=== PATIENT | male | born 1960 | race African-American/Black ===

== ENCOUNTER 2017-11-19 12:53 | Emergency (ER) | payer BC ==
[2017-11-19] MEDS ORDERED: KETOROLAC TROMETHAMINE INJ/PF 30 MG/1 ML SDV IM ONE (14:20)
[2017-11-19] MEDS ORDERED: DEXAMETHASONE SOD PHOS INJ 10 MG/1 ML VIAL IM ONE (14:20)
--- NOTE | 2017-11-19 14:27 | ER Document Report ---
HPI - HPI Pain Level: 5 Notes: Patient is a 57-year-old male who presents to the ED with acute on chronic low back pain. Patient states that his symptoms began when he was at work this morning. Patient states that he was picking up yard waste when he felt pain in his back. Patient states that he has had pain in this area before and is scheduled for surgery in about 2 weeks. Patient states that he did have a previous surgery to that area in his back as well in the past. Patient states that the pain is primarily there with movement and not by the touch. He still eating and drinking without any difficulties. He is urinating normally and having normal bowel movements. Patient states that he is still ambulatory. He denies any diabetes history, IV drug use, h/o AAA, injections or procedures to his lower back recently, previous spinal abscess, or recent illness. He denies any drug allergies. Patient does admit to smoking. Denies any headache, fever , neck pain, URI, sore throat, chest pain, palpitations, syncope, cough, shortness of breath, wheeze, dyspnea, abdominal pain, nausea/vomiting/diarrhea, urinary retention, dysuria, hematuria, loss of control of bowel or bladder, numbness/tingling, saddle anesthesia, muscle paralysis/weakness, or rash. Patient is under the care of pain management and takes Lyrica as well as oxycodone for his chronic pain. - ROS Systems Reviewed and Negative: Yes All other systems reviewed and negative - CONSTITUTIONAL Constitutional: DENIES: Fever, Chills - MUSCULOSKELETAL Musculoskeletal: REPORTS: Extremity pain - right leg Past Medical History - Social History Smoking Status: Current Every Day Smoker Chew tobacco use (# tins/day): No Frequency of alcohol use: Rare Drug Abuse: None Family History: Reviewed & Not Pertinent Patient has suicidal ideation: No Patient has homicidal ideation: No - Past Medical History Cardiac Medical History: Reports: Hx Coronary Artery Disease, Hx Hypertension Pulmonary Medical History: Renal/ Medical History: Denies: Hx Peritoneal Dialysis Musculoskeltal Medical History: Reports Hx Arthritis - bilateral knees and back Past Surgical History: Reports: Hx Cardiac Surgery - stents, Hx Orthopedic Surgery - s/p L KNEE SURGERY 1 MO AGO. Denies: Hx Open Heart Surgery - Immunizations Immunizations up to date: Yes Hx Diphtheria, Pertussis, Tetanus Vaccination: No - unk Vertical Provider Document - CONSTITUTIONAL Agree With Documented VS: Yes Notes: PHYSICAL EXAMINATION: GENERAL: Well-appearing, well-nourished and in no acute distress. LUNGS: Breath sounds clear to auscultation bilaterally and equal. No wheezes rales or rhonchi. HEART: Regular rate and rhythm without murmurs, rubs, gallops. ABDOMEN: Soft, nontender, nondistended abdomen. No guarding, no rebound. No masses appreciated. Normal bowel sounds present. No CVA tenderness bilaterally. No obvious pulsatile mass Musculoskeletal: LE's b/l: FROM to passive/active. Strength 5+/5. No deficits noted. No bony tenderness of extremities. Back: FROM to passive/active. Strength 5+/5. No vertebral point tenderness, stepoffs, or deformities. No other bony tenderness, erythema, swelling, or ecchymosis. SLR negative b/l. + mild tenderness to the L-paraspinal mm b/l. Mild spasming. No SI jt tenderness. No foot drop Extremities: No cyanosis, clubbing, or edema b/l. Peripheral pulses 2+. Capillary refill less than 2 seconds. NEUROLOGICAL: Normal speech, ataxic gait. Normal sensory, motor exams. Reflexes 2+ b/l. PSYCH: Normal mood, normal affect. SKIN: Warm, Dry, normal turgor, no rashes or lesions noted. - INFECTION CONTROL TRAVEL OUTSIDE OF THE [place] IN LAST 30 DAYS: No - RESPIRATORY O2 Sat by Pulse Oximetry: 99 Course - Re-evaluation Re-evalutation: 11/19/17 14:33 Patient is an afebrile, well-hydrated, 57-year-old male who presents to the ED with acute on chronic low back pain, suspect low back strain. Vitals are stable. PE is otherwise unremarkable for any focal neurological deficits. Toradol and Decadron given IM today. Low suspicion for any meningitis, fracture , expanding/ruptured AAA, cauda equina syndrome, epidural mass lesion/abscess, herniated disc causing severe spinal stenosis, or other systemic infection at this time. Patient is aware that his condition can change from initial presentation and that he needs monitor symptoms closely for any acute changes. Recommend conservative measures for symptoms. I will send him home with a prescription for baclofen that he may use as directed and not while working or operating heavy machinery. Recheck with your PCM in 3-5 days. Keep consult with the surgeon in 2 weeks. Return to the ED with any worsening/concerning symptoms otherwise as reviewed discharge. Patient is in agreement. - Vital Signs Vital signs: Temp Pulse Resp BP Pulse Ox 98.0 F 75 16 152/84 H 99 11/19/17 12:58 11/19/17 12:58 11/19/17 12:58 11/19/17 12:58 11/19/17 12:58 Discharge - Discharge Clinical Impression: Low back pain Qualifiers: Chronicity: acute Back pain laterality: bilateral Sciatica presence: unspecified whether sciatica present Qualified Code(s): M54.5 - Low back pain Condition: Stable Disposition: HOME, SELF-CARE Instructions: Low Back Pain ([facility]), Warm Packs ([facility]), Ice Packs ([facility]) Additional Instructions: Rest, Ice Take medications as directed/needed Tylenol/ibuprofen as needed Light stretches daily Strength exercises as able Moist heat and massage may help F/u with your PCP in 3-5 days for a recheck Keep consult with your back surgeon and pain management Return to the ED with any worsening symptoms and/or development of fever, headache, chest pain, palpitations, syncope, shortness of breath, trouble breathing, abdominal pain, n/v/d, blood in stool/urine, loss of control of bowel /bladder, urinary retention, muscle weakness/paralysis, saddle anesthesia, numbness/tingling, or other worsening symptoms that are concerning to you. Prescriptions: Baclofen [Baclofen 10 mg Tablet] 5 - 10 mg PO BID PRN #10 tablet PRN Reason: Forms: Elevated Blood Pressure, Smoking Cessation Education, Return to Work Referrals: [facility] [Provider Group] - Follow up as needed
[2017-11-19 14:49] VITALS: BP 159/92
== END 2017-11-19 14:49 | disposition home or self-care (01) ==
LOC: ER 12:53
DX: M54.5 Low back pain (principal); G89.29 Other chronic pain; F17.200 Nicotine dependence, unspecified, uncomplicated
CPT/HCPCS: 99283; 96372; J1885; J1100

== ENCOUNTER 2017-11-23 13:00 | Emergency (ER) | payer BC ==
--- NOTE | 2017-11-23 13:18 | ER Document Report ---
ED Medical Screen (RME) - General Chief Complaint: Abdominal Pain Stated Complaint: STOMACH PAIN Time Seen by Provider: 11/23/17 13:13 Notes: Patient is here due to low blood pressure. He was seen here on with stomach pain and nausea and vomiting, but not diarrhea. He was given IV fluids and lab tests, including a CT scan without significant findings. He was discharged home with medications. He has had continued pain, although it has improved and also continuing nausea and has not been able to eat or drink very much. He went to a local urgent care today and his blood pressure was very low and they referred him here for further care. Patient is unaware of any fever. No chest pains. Has had this several times in the past without a good explanation. TRAVEL OUTSIDE OF THE [place] IN LAST 30 DAYS: No - Related Data Allergies/Adverse Reactions: No Known Allergies Allergy (Verified 11/23/17 13:00) Past Medical History - Past Medical History Cardiac Medical History: Reports: Hx Coronary Artery Disease, Hx Hypertension Pulmonary Medical History: Renal/ Medical History: Denies: Hx Peritoneal Dialysis Musculoskeltal Medical History: Reports Hx Arthritis - bilateral knees and back Past Surgical History: Reports: Hx Cardiac Surgery - stents, Hx Orthopedic Surgery - s/p L KNEE SURGERY 1 MO AGO. Denies: Hx Open Heart Surgery - Immunizations Immunizations up to date: Yes Hx Diphtheria, Pertussis, Tetanus Vaccination: No - unk Physical Exam - Vital signs Vitals: Pulse Resp BP Pulse Ox 78 17 79/53 L 95 11/23/17 13:04 11/23/17 13:04 11/23/17 13:04 11/23/17 13:04 Course - Vital Signs Vital signs: Temp Pulse Resp BP Pulse Ox 78 17 79/53 L 95 11/23/17 13:04 11/23/17 13:04 11/23/17 13:04 11/23/17 13:04
[2017-11-23] MEDS: NORMAL SALINE 1000 ML 1,000 ML IV PRN ×2 (13:41→15:07)
[2017-11-23 13:57] LABS: ABSOLUTE BASOPHILS # (AUTO) 0.1 10^3/uL (0.0-0.2); ABSOLUTE LYMPHOCYTES (AUTO) 3.5 10^3/uL (0.5-4.7); ABSOLUTE MONOCYTES (AUTO) 0.7 10^3/uL (0.1-1.4); ABSOLUTE NEUT (AUTO) 3.6 10^3/uL (1.7-8.2); BASOPHILS % (AUTO) 0.8 % (0-2); EOSINOPHILS % (AUTO) 0.5 % (0-6); HEMOGLOBIN 15.4 g/dL (13.5-17.0); LYMPHOCYTES % (AUTO) 43.7 % (13-45); MEAN CORPUSCULAR HEMOGLOBIN 29.2 pg (27.0-33.4); MEAN CORPUSCULAR HGB CONC 33.5 g/dL (32.0-36.0); MEAN CORPUSCULAR VOLUME 87 fl (80-97); MONOCYTES % (AUTO) 9.2 % (3-13); PLATELET COUNT 326 10^3/uL (150-450); RED BLOOD COUNT 5.29 10^6/uL (4.35-5.55); RED CELL DISTRIBUTION WIDTH 15.5 % (11.5-14.0); SEGMENTED NEUTROPHILS % (AUTO) 45.8 % (42-78); TOTAL CELLS COUNTED % (AUTO) 100 %
--- NOTE | 2017-11-23 14:12 | ER Document Report ---
ED GI/ - General Chief Complaint: Abdominal Pain Stated Complaint: STOMACH PAIN Time Seen by Provider: 11/23/17 13:13 Information source: Patient Notes: 57-year-old male with past medical history of high blood pressure with 2 cardiac stents who presents today with some return of abdominal pain. Patient was seen here on 4 days ago on November 20 secondary to some right midabdominal pain. Laboratory work showed an elevated white count of [address] scan of the abdomen and pelvis. Patient had vomiting at that time. Patient states he has had some intermittent nausea without vomiting. He has had no diarrhea. He denies any fevers. Patient states he started again to have pain but now lower to the right lower quadrant. He denies any upper abdominal pain or chest pain. He denies any cough or shortness of breath. He denies any dysuria or flank pain. Patient was seen in urgent care center where they found a low blood pressure on the patient was expedited here to the emergency department. Patient at this moment denies any and all pain to the abdomen. TRAVEL OUTSIDE OF THE [place] IN LAST 30 DAYS: No - HPI Patient complains to provider of: Abdominal pain, Other Onset: Other Timing/Duration: Gradual Quality of pain: Achy Severity at maximum: Moderate Severity in ED: None Pain Level: Denies Location: Other Sexual history: Active Associated symptoms: Other Exacerbated by: Denies Relieved by: Denies Similar symptoms previously: No Recently seen / treated by doctor: No - Related Data Allergies/Adverse Reactions: No Known Allergies Allergy (Verified 11/23/17 13:00) Past Medical History - General Information source: Patient - Social History Smoking Status: Current Every Day Smoker Cigarette use (# per day): No Chew tobacco use (# tins/day): No Smoking Education Provided: No Frequency of alcohol use: None Family History: Reviewed & Not Pertinent Patient has suicidal ideation: No Patient has homicidal ideation: No - Past Medical History Cardiac Medical History: Reports: Hx Coronary Artery Disease, Hx Hypertension Pulmonary Medical History: Renal/ Medical History: Denies: Hx Peritoneal Dialysis Musculoskeltal Medical History: Reports Hx Arthritis - bilateral knees and back Past Surgical History: Reports: Hx Cardiac Surgery - stents, Hx Orthopedic Surgery - s/p L KNEE SURGERY 1 MO AGO. Denies: Hx Open Heart Surgery - Immunizations Immunizations up to date: Yes Hx Diphtheria, Pertussis, Tetanus Vaccination: No - unk Review of Systems - Review of Systems Constitutional: denies: Fever EENT: denies: Eye discharge, Nose discharge Cardiovascular: denies: Chest pain, Palpitations Respiratory: denies: Short of breath Gastrointestinal: denies: Vomiting Genitourinary: denies: Dysuria Musculoskeletal: denies: Leg swelling Skin: Other - no hives. denies: Rash Neurological/Psychological: Other - no slurred speech -: Yes All other systems reviewed and negative Physical Exam - Vital signs Vitals: Pulse Resp BP Pulse Ox 78 17 79/53 L 95 11/23/17 13:04 11/23/17 13:04 11/23/17 13:04 11/23/17 13:04 Interpretation: Normal Notes: Reviewed vital signs and nursing note as charted by RN. CONSTITUTIONAL: Alert and oriented and responds appropriately to questions. Well -appearing; well-nourished HEAD: Normocephalic; atraumatic EYES: Sclerae non-icteric CARD: Regular rate and rhythm; no murmurs RESP: Normal chest excursion without splinting or tachypnea; breath sounds clear and equal bilaterally ABD/GI: Normal bowel sounds; non-distended; soft, non-tender currently to all 4 quadrants of the abdomen with no rebound or guarding. No palpable masses. No abdominal bruits present GI/: Patient has no penile lesions, inguinal or scrotal masses. Testes are nontender to palpation bilaterally BACK: The back appears normal and is non-tender to palpation, there is no CVA tenderness EXT: Normal ROM in all joints; non-tender to palpation; no edema SKIN: No acute lesions noted NEURO: Moves all extremities equally; Motor and sensory function intact PSYCH: The patient's mood and manner are appropriate. Grooming and personal hygiene are appropriate. Course - Re-evaluation Re-evalutation: Given the history and physical examination, with the blood pressure as recorded , we will obtain labs, cardiac labs, EKG, abdominal labs, urinalysis, and reassess. 2 L of fluid have been ordered. Patient currently denies any pain at this time. 11/23/17 14:12 EKG shows a heart of 63, normal sinus rhythm, minimal left axis deviation, minimal J-point appearing elevation in leads V3 and V4. Slight peaking of the T waves in V3 through V5 with some elevated amplitude. EKG from May 12, 2016 show similar J-point appearance without the larger peaked T waves Patient denies a history of diabetes. 11/23/17 14:52 Labs as recorded. Normal white blood cell count. Lactic acid is slightly elevated at 2.5 and the patient's creatinine is 1.5. Patient and state that the patient has not eaten or drank much since those day when he had the vomiting. Patient still denies again any and all abdominal pain. Repeat abdominal exam still shows no tenderness to all 4 quadrants. Vital signs are completely stable with a heart rate of 71 and a blood pressure of 102/72. Patient states his pain this morning started at 4 AM while he was sleeping. It was not exertional or related to eating. I do believe mesenteric ischemia given this history, with recent CT as recorded, with no tenderness whatsoever at this time to be unlikely. We will obtain a repeat troponin and lactic acid after the 2 L have infused. 11/23/17 16:18 Patient still denies any pain. Repeat troponin and lactic acid will be drawn in 10 minutes. 11/23/17 17:35 Patient's troponin and lactic acid have improved. Patient is now actually eating. He again denies any abdominal pain. Given the full history, physical, repeat exams, labs, repeat labs, lack of any pain the entire visit to the emergency department, improved troponin and lactic acid, I do not believe that the patient requires admission at this time. Patient is in agreement as is the family. Patient will be discharged home with strict return precautions and follow-up with the primary care physician. - Vital Signs Vital signs: Temp Pulse Resp BP Pulse Ox 78 13 165/91 H 97 11/23/17 13:04 11/23/17 16:01 11/23/17 16:01 11/23/17 16:01 - Laboratory Result Diagrams: 11/23/17 13:35 11/23/17 13:35 Laboratory results interpreted by me: 11/23/17 11/23/17 11/23/17 13:35 13:35 13:35 RDW 15.5 H BUN 22 H Creatinine 1.48 H Est GFR (Non-Af Amer) 49 L Lactic Acid 2.5 H Discharge - Discharge Clinical Impression: Dehydration, Lactic acidosis Abdominal pain Qualifiers: Abdominal location: unspecified location Qualified Code(s): R10.9 - Unspecified abdominal pain Condition: Good Disposition: HOME, SELF-CARE Additional Instructions: Come back immediately for any return of pain, any vomiting, any fevers, lightheadedness or dizziness, or any other acute problems. Please make sure that you follow-up with the primary doctor as we have discussed.
[2017-11-23 14:16] LABS: ALANINE AMINOTRANSFERASE 34 U/L (21-72); ALBUMIN 4.7 g/dL (3.5-5.0); ALKALINE PHOSPHATASE 52 U/L (38-126); ANION GAP 14 (5-19); ASPARTATE AMINO TRANSFERASE 20 U/L (17-59); BILIRUBIN,DIRECT 0.4 mg/dL (0.0-0.4); BILIRUBIN,TOTAL 0.9 mg/dL (0.2-1.3); BLOOD UREA NITROGEN 22 mg/dL (7-20); CALCIUM 9.3 mg/dL (8.4-10.2); CARBON DIOXIDE 26 mmol/L (22-30); CHLORIDE 98 mmol/L (98-107); GLUCOSE 98 mg/dL (75-110); LIPASE 136.9 U/L (23-300); POTASSIUM 4.2 mmol/L (3.6-5.0); SODIUM 137.5 mmol/L (137-145)
[2017-11-23 14:29] LABS: CREATINE KINASE MB < 0.22 ng/mL (<4.55); TROPONIN I 0.037 ng/mL
--- NOTE | 2017-11-23 15:29 | EKG REPORT ---
SEVERITY:- ABNORMAL ECG - SINUS RHYTHM MINIMAL ST ELEVATION, ANTERIOR LEADS TALL T, CONSIDER METABOLIC/ISCHEMIC ABNRM PROLONGED QT INTERVAL : Confirmed by: Stalin Cuevas MD 23-Nov-2017 15:28:28
[2017-11-23 17:05] LABS: APPEARANCE,URINE CLEAR; BILIRUBIN,URINE NEGATIVE (NEGATIVE); COLOR,URINE YELLOW; GLUCOSE, URINE NEGATIVE (NEGATIVE); KETONES,URINE NEGATIVE (NEGATIVE); LEUKOCYTE ESTERASE,URINE NEGATIVE (NEGATIVE); NITRITE,URINE NEGATIVE (NEGATIVE); PROTEIN,URINE NEGATIVE (NEGATIVE); URINE SPECIFIC GRAVITY 1.005; UROBILINOGEN,URINE NEGATIVE mg/dL (<2.0)
[2017-11-23 17:47] VITALS: BP 138/85
== END 2017-11-23 17:47 | disposition home or self-care (01) ==
LOC: ER 13:00
DX: R10.31 Right lower quadrant pain (principal); E86.0 Dehydration; E87.2 Acidosis; I10 Essential (primary) hypertension; R11.0 Nausea; F17.200 Nicotine dependence, unspecified, uncomplicated; I25.10 Atherosclerotic heart disease of native coronary artery without angina pectoris; Z95.5 Presence of coronary angioplasty implant and graft
CPT/HCPCS: 93005; 99284; 96360; 36415; 82553; 83605 ×2; 83690; 83735; 85025; 80053; 81001; 84484; 93010; J7030

== ENCOUNTER 2018-07-06 14:15 | Emergency (ER) | payer BC ==
[2018-07-06] MEDS ORDERED: ONDANSETRON 4 MG TAB.RAPDIS ONE (14:30)
[2018-07-06] MEDS ORDERED: ONDANSETRON 4 MG TAB.RAPDIS PO ONE (14:38)
[2018-07-06] MEDS ORDERED: MORPHINE SULFATE 10 MG/ML INJ IV ONE ×2 (14:40→17:00)
--- NOTE | 2018-07-06 14:42 | ER Document Report ---
ED Medical Screen (RME) - General Chief Complaint: Abdominal Pain Stated Complaint: ABDOMINAL PAIN Time Seen by Provider: 07/06/18 14:34 Mode of Arrival: Ambulatory Information source: Patient Notes: 57-year-old male presents the emergency department with complaints of lower abdominal pain. Patient states that the pain started around 8 AM. He describes it as an aching sensation. He denies any radiation of the pain. He denies any alleviating or exacerbating factors. He is having associated nausea and vomiting. He denies any diarrhea, constipation, testicular pain, penile discharge. Patient denies any previous abdominal surgeries. No history of sick contacts. TRAVEL OUTSIDE OF THE [place] IN LAST 30 DAYS: No - Related Data Allergies/Adverse Reactions: No Known Allergies Allergy (Verified 07/06/18 14:16) Past Medical History - Social History Chew tobacco use (# tins/day): No Frequency of alcohol use: Social - Past Medical History Cardiac Medical History: Reports: Hx Coronary Artery Disease, Hx Hypertension Pulmonary Medical History: Renal/ Medical History: Denies: Hx Peritoneal Dialysis Musculoskeltal Medical History: Reports Hx Arthritis - bilateral knees and back Past Surgical History: Reports: Hx Cardiac Surgery - stents, Hx Orthopedic Surgery - s/p L KNEE SURGERY 1 MO AGO. Denies: Hx Open Heart Surgery - Immunizations Immunizations up to date: Yes Hx Diphtheria, Pertussis, Tetanus Vaccination: No - unk
[2018-07-06 15:39] LABS: ABSOLUTE LYMPHOCYTES (AUTO) 1.5 10^3/uL (0.5-4.7); ABSOLUTE MONOCYTES (AUTO) 0.5 10^3/uL (0.1-1.4); ABSOLUTE NEUT (AUTO) 6.6 10^3/uL (1.7-8.2); BASOPHILS % (AUTO) 0.5 % (0-2); EOSINOPHILS % (AUTO) 0.1 % (0-6); HEMATOCRIT 44.9 % (37.9-51.0); HEMOGLOBIN 15.6 g/dL (13.5-17.0); LYMPHOCYTES % (AUTO) 17.7 % (13-45); MEAN CORPUSCULAR HEMOGLOBIN 32.7 pg (27.0-33.4); MEAN CORPUSCULAR HGB CONC 34.8 g/dL (32.0-36.0); MEAN CORPUSCULAR VOLUME 94 fl (80-97); MONOCYTES % (AUTO) 5.9 % (3-13); PLATELET COUNT 265 10^3/uL (150-450); RED BLOOD COUNT 4.77 10^6/uL (4.35-5.55); RED CELL DISTRIBUTION WIDTH 14.4 % (11.5-14.0); SEGMENTED NEUTROPHILS % (AUTO) 75.8 % (42-78); TOTAL CELLS COUNTED % (AUTO) 100 %; WHITE BLOOD COUNT 8.7 10^3/uL (4.0-10.5)
--- NOTE | 2018-07-06 15:44 | RADIOLOGY REPORT (SQ) ---
EXAM DESCRIPTION: ACUTE ABDOMEN SERIES COMPLETED DATE/TIME: 07/06/2018 3:24 pm REASON FOR STUDY: abdominal pain COMPARISON: None. NUMBER OF VIEWS: Three views. TECHNIQUE: Frontal chest, supine abdomen and upright/decubitus abdomen radiographic images acquired. LIMITATIONS: None. FINDINGS: CHEST: Lungs clear of infiltrates. FREE AIR: None. No abnormal gas collections. BOWEL GAS PATTERN: Nonobstructive pattern. No dilated loops or air fluid levels. CALCIFICATIONS: No suspicious calcifications. HARDWARE: None in the abdomen. SOFT TISSUES: No gross mass or suggestion of organomegaly. BONES: Hardware posterior fusion L3-S1. OTHER: No other significant finding. IMPRESSION: 1. NO RADIOGRAPHIC EVIDENCE FOR ACUTE ABDOMINAL DISEASE. TECHNICAL DOCUMENTATION: JOB ID: [id number] [employer]- All Rights Reserved Reading location - IP/workstation name: [email or web address]
[2018-07-06 16:03] LABS: ALANINE AMINOTRANSFERASE 54 U/L (21-72); ALBUMIN 5.4 g/dL (3.5-5.0); ALKALINE PHOSPHATASE 92 U/L (38-126); ANION GAP 17 (5-19); ASPARTATE AMINO TRANSFERASE 62 U/L (17-59); BILIRUBIN,DIRECT 0.4 mg/dL (0.0-0.4); BILIRUBIN,TOTAL 1.5 mg/dL (0.2-1.3); BLOOD UREA NITROGEN 6 mg/dL (7-20); CALCIUM 10.3 mg/dL (8.4-10.2); CARBON DIOXIDE 28 mmol/L (22-30); CHLORIDE 98 mmol/L (98-107); GLUCOSE 120 mg/dL (75-110); POTASSIUM 3.2 mmol/L (3.6-5.0); SODIUM 142.7 mmol/L (137-145)
[2018-07-06] MEDS ORDERED: CLONIDINE HCL 0.1 MG TABLET PO ONE (17:11)
[2018-07-06] MEDS ORDERED: POTASSIUM CHLORIDE 10 MEQ CAPSULE.ER PO ONE (17:18)
[2018-07-06] MEDS ORDERED: DIPHENHYDRAMINE HCL 50 MG/ML VIAL IV ONE (17:24)
[2018-07-06] MEDS ORDERED: METOCLOPRAMIDE HCL INJ/PF 10 MG/2 ML SDV IV ONE (17:24)
[2018-07-06] MEDS ORDERED: CLONIDINE 0.2 MG/24 HR PATCH.TDWK TD ONE (17:25)
[2018-07-06] MEDS ORDERED: NORMAL SALINE 1000 ML 1,000 ML IV ONE (18:18)
[2018-07-06] MEDS ORDERED: HYDROMORPHONE HCL INJ/PF 2 MG/ML AMPULE IV ONE (18:18)
--- NOTE | 2018-07-06 18:53 | RADIOLOGY REPORT (SQ) ---
EXAM DESCRIPTION: CT ABD/PELVIS WITH IV ONLY COMPLETED DATE/TIME: 07/06/2018 6:39 pm REASON FOR STUDY: abd pain COMPARISON: 04/29/2016 TECHNIQUE: CT scan of the abdomen and pelvis performed using helical scanning technique with dynamic intravenous contrast injection. No oral contrast. Images reviewed with lung, soft tissue, and bone windows. Reconstructed coronal and sagittal MPR images reviewed. Delayed images for evaluation of the urinary system also acquired. All images stored on PACS. All CT scanners at this facility use dose modulation, iterative reconstruction, and/or weight based d osing when appropriate to reduce radiation dose to as low as reasonably achievable (ALARA). [facility]: Dose Right [facility]: CareDose [facility]: Dose Right [facility]: Teradose 4D [facility]: Vayusa CONTRAST TYPE AND DOSE: contrast/concentration: Isovue 350.00 mg/ml; Total Contrast Delivered: 74.0 ml; Total Saline Delivered: 40.0 ml RENAL FUNCTION: BUN 6 creatinine 0.7 RADIATION DOSE: CT Rad equipment meets quality standard of care and radiation dose reduction techniq ues were employed. CTDIvol: 4.8 - 5.5 mGy. DLP: 510 mGy-cm.. LIMITATIONS: None. FINDINGS: LOWER CHEST: No significant findings. No nodules or infiltrates. LIVER: Normal size. No masses. No dilated ducts. SPLEEN: Normal size. No focal lesions. PANCREAS: No masses. No significant calcifications. No adjacent inflammation or peripancreatic fluid collections. Pancreatic duct not dilated. GALLBLADDER: No identified stones by CT criteria. No inflammatory changes to suggest cholecystitis. ADRENAL GLANDS: No significant masses or asymmetry. RIGHT KIDNEY AND URETER: No solid masses. No significant calcifications. No hydronephrosis or hyd roureter. LEFT KIDNEY AND URETER: No solid masses. No significant calcifications. No hydronephrosis or hydr oureter. AORTA AND VESSELS: No aneurysm. No dissection. Renal arteries, SMA, celiac without stenosis. RETROPERITONEUM: No retroperitoneal adenopathy, hemorrhage or masses. BOWEL AND PERITONEAL CAVITY: No masses or inflammatory changes. No free fluid or peritoneal masses. APPENDIX: Not identified. No pericecal inflammatory changes are seen. PELVIS: No masses or fluid collections. Urinary bladder is normal. ABDOMINAL WALL: No masses. No hernias. BONES: Posterior rods from L3-S1 with disc space implants. OTHER: No other significant finding. IMPRESSION: No acute findings in the abdomen or pelvis. Osseous findings as described. TECHNICAL DOCUMENTATION: JOB ID: [id number] Quality ID # [id number]: Final reports with documentation of one or more dose reduction techniques (e.g., Au tomated exposure control, adjustment of the mA and/or kV according to patient size, use of iterative reconstruction technique) 2010 [employer]- All Rights Reserved Reading location - IP/workstation name: [email or web address]
[2018-07-06] MEDS ORDERED: LABETALOL HCL INJ 20 MG/4 ML DISP.SYRIN IV ONE (19:00)
--- NOTE | 2018-07-06 20:02 | ER Document Report ---
ED General - General Chief Complaint: Abdominal Pain Stated Complaint: ABDOMINAL PAIN Time Seen by Provider: 07/06/18 14:34 Mode of Arrival: Ambulatory Information source: Patient Notes: 57-year-old man with a history of Abhilash artery disease (stents), hypertension, arthritis with chronic pain who presents to the emergency room with abdominal pain, nausea and vomiting. Patient states his symptoms started this morning. He states that the pain is generalized in the mid abdomen. He denies any significant alcohol intake. He does have a few drinks several times a week. He denies any history of ulcers. He denies any blood in the stool. He is on Plavix (75 mg daily). His other medicines include atorvastatin 80 mg daily, carvedilol 12 mg daily, lisinopril 5 mg daily, Percocet & Vascepa. TRAVEL OUTSIDE OF THE [place] IN LAST 30 DAYS: No - HPI Onset: This morning Onset/Duration: Gradual Quality of pain: Cramping, Dull Severity: Moderate Pain Level: 2 Associated symptoms: Nausea, Vomiting. denies: Chest pain, Shortness of breath Exacerbated by: Denies Relieved by: Denies Similar symptoms previously: Yes Recently seen / treated by doctor: No - Related Data Allergies/Adverse Reactions: No Known Allergies Allergy (Verified 07/06/18 14:16) Past Medical History - General Information source: Patient - Social History Smoking Status: Current Every Day Smoker Cigarette use (# per day): Yes - 1 pack/day Chew tobacco use (# tins/day): No Frequency of alcohol use: Social Drug Abuse: None Lives with: Family Family History: Reviewed & Not Pertinent Patient has suicidal ideation: No Patient has homicidal ideation: No - Past Medical History Cardiac Medical History: Reports: Hx Coronary Artery Disease, Hx Hypertension Pulmonary Medical History: Renal/ Medical History: Denies: Hx Peritoneal Dialysis Musculoskeletal Medical History: Reports Hx Arthritis - bilateral knees and back Past Surgical History: Reports: Hx Cardiac Surgery - stents, Hx Orthopedic Surgery - s/p L KNEE SURGERY 1 MO AGO. Denies: Hx Open Heart Surgery - Immunizations Immunizations up to date: Yes Hx Diphtheria, Pertussis, Tetanus Vaccination: No - unk Review of Systems - Review of Systems Constitutional: denies: Chills, Fever EENT: No symptoms reported Cardiovascular: No symptoms reported Respiratory: No symptoms reported Gastrointestinal: See HPI Genitourinary: No symptoms reported Male Genitourinary: No symptoms reported Musculoskeletal: No symptoms reported Skin: No symptoms reported Hematologic/Lymphatic: No symptoms reported Neurological/Psychological: No symptoms reported Physical Exam - Vital signs Vitals: Resp Pulse Ox 23 H 99 07/06/18 15:32 07/06/18 15:32 Notes: Physical exam: GENERAL: HEAD: Atraumatic, normocephalic. EYES: Pupils equal round and reactive to light, extraocular movements intact, sclera anicteric, conjunctiva are normal. ENT: TMs normal, nares patent, oropharynx clear without exudates. Moist mucous membranes. NECK: Normal range of motion, supple without obvious mass or JVD. LUNGS: Breath sounds clear to auscultation bilaterally and equal. No wheezes rales or rhonchi. HEART: Regular rate and rhythm without murmurs, rubs or gallops. ABDOMEN: Soft, normoactive bowel sounds. No tenderness to palpation. No guarding, no rebound. No masses appreciated. EXTREMITIES: Normal range of motion, no pitting or edema. No clubbing or cyanosis. NEUROLOGICAL: Cranial nerves II through XII grossly intact. Normal speech, moving all extremities. PSYCH: Normal mood, normal affect. SKIN: Warm, Dry, normal turgor, no rashes or lesions noted. Course - Re-evaluation Re-evalutation: 07/06/18 20:19 Patient is comfortable. He is smiling and conversant. He was given IV pain medicine, IV antiemetics. CT of the abdomen looks good. He is been afebrile and his white count is normal. Repeat abdominal exam is soft and nontender. He was given some antihypertensive and we will continue to watch his blood pressure. - Vital Signs Vital signs: Temp Pulse Resp BP Pulse Ox 14 203/126 H 96 07/06/18 17:29 07/06/18 17:29 07/06/18 17:29 - Laboratory Result Diagrams: 07/06/18 15:32 07/06/18 15:32 Laboratory results interpreted by me: 07/06/18 07/06/18 07/06/18 15:32 15:32 19:49 RDW 14.4 H Potassium 3.2 L BUN 6 L Glucose 120 H Calcium 10.3 H Total Bilirubin 1.5 H AST 62 H Total Protein 10.0 H Albumin 5.4 H Urine Protein >=500 H Urine Glucose (UA) 50 H Urine Ketones 20 H Urine Blood SMALL H - Diagnostic Test Radiology reviewed: Image reviewed, Reports reviewed - CT of the abdomen shows no acute inflammation. Discharge - Discharge Clinical Impression: Abdominal pain Condition: Stable Disposition: HOME, SELF-CARE Additional Instructions: Recommendations: Rest, drink plenty of fluids, advance diet slowly. Continue taking your blood pressure medicine. Return to the emergency room for worsening abdominal pain, fever (temperature greater than 100.5), not tolerating fluids or any concerns or getting worse. Note: Your potassium was a little low today. You were given potassium in the emergency room. In addition I recommend you eat foods that have high potassium contents: [place] squash, baked potato, spinach, lentils, kidney beans, watermelon , raisins, yogurt, orange juice, bananas, low-fat milk and cooked broccoli. Referrals: NELIDA PATEL MD [EMERITUS] - Follow up in 1 week (Follow-up with Dr. Ann as planned) [facility] [Provider Group] - Follow up as needed (The [facility] does provide good and expensive healthcare. Its important have a primary care doctor as well. Follow-up with them as needed.)
[2018-07-06 20:03] LABS: APPEARANCE,URINE CLEAR; BILIRUBIN,URINE NEGATIVE (NEGATIVE); COLOR,URINE YELLOW; GLUCOSE, URINE 50 mg/dL (NEGATIVE); KETONES,URINE 20 mg/dL (NEGATIVE); LEUKOCYTE ESTERASE,URINE NEGATIVE (NEGATIVE); NITRITE,URINE NEGATIVE (NEGATIVE); PROTEIN,URINE >=500 mg/dL (NEGATIVE); URINE SPECIFIC GRAVITY 1.024; UROBILINOGEN,URINE NEGATIVE mg/dL (<2.0)
[2018-07-06 20:56] VITALS: BP 90/69
== END 2018-07-06 21:05 | disposition home or self-care (01) ==
LOC: ER 14:15
DX: R10.9 Unspecified abdominal pain (principal); R11.2 Nausea with vomiting, unspecified; F17.210 Nicotine dependence, cigarettes, uncomplicated; I25.10 Atherosclerotic heart disease of native coronary artery without angina pectoris; I10 Essential (primary) hypertension
CPT/HCPCS: 99284; 96361; 96374; 96375; 36415; 83690; 85025; 82272; 80053; 81001; 74022; 74177; S0119; J3490 ×2; J2765; J2270; J1170; J7030

== ENCOUNTER → 2018-08-11 | Outpatient (CLI) | payer BC ==
[2018-08-11 09:15] LABS: ALANINE AMINOTRANSFERASE 37 U/L (21-72); ALBUMIN 4.2 g/dL (3.5-5.0); ALKALINE PHOSPHATASE 67 U/L (38-126); ANION GAP 14 (5-19); ASPARTATE AMINO TRANSFERASE 55 U/L (17-59); BILIRUBIN,DIRECT 0.3 mg/dL (0.0-0.4); BILIRUBIN,TOTAL 0.6 mg/dL (0.2-1.3); BLOOD UREA NITROGEN 6 mg/dL (7-20); CALCIUM 9.2 mg/dL (8.4-10.2); CARBON DIOXIDE 27 mmol/L (22-30); CHLORIDE 105 mmol/L (98-107); CHOLESTEROL 128.87 mg/dL (0-200); GAMMA-GLUTAMYL TRANSFERASE 186 U/L (8-78); GLUCOSE 105 mg/dL (75-110); POTASSIUM 3.6 mmol/L (3.6-5.0); SODIUM 145.6 mmol/L (137-145); TOTAL PROTEIN 7.3 g/dL (6.3-8.2); TRIGLYCERIDES 352 mg/dL (<150)
[2018-08-11 09:26] LABS: APPEARANCE,URINE CLEAR; BILIRUBIN,URINE NEGATIVE (NEGATIVE); COLOR,URINE YELLOW; DIRECT LDL 57 mg/dL (<100); GLUCOSE, URINE NEGATIVE (NEGATIVE); KETONES,URINE NEGATIVE (NEGATIVE); LEUKOCYTE ESTERASE,URINE NEGATIVE (NEGATIVE); NITRITE,URINE NEGATIVE (NEGATIVE); PROTEIN,URINE NEGATIVE (NEGATIVE); URINE SPECIFIC GRAVITY 1.021
[2018-08-11 09:28] LABS: VLDL CHOLESTEROL 70.4 mg/dL (10-31)
== END ==
LOC: OD 08:06
PROVIDERS: ATTEND Internal Medicine Cardiovascular Disease
DX: I10 Essential (primary) hypertension (principal); R94.5 Abnormal results of liver function studies; E78.2 Mixed hyperlipidemia; Z79.899 Other long term (current) drug therapy; R82.998 Other abnormal findings in urine
CPT/HCPCS: 36415; 80048; 80061; 80076; 81001; 82977

== ENCOUNTER → 2018-08-31 | Outpatient (CLI) | payer BC ==
[2018-08-31 09:55] LABS: ANION GAP 15 (5-19); BLOOD UREA NITROGEN 6 mg/dL (7-20); CALCIUM 9.2 mg/dL (8.4-10.2); CARBON DIOXIDE 26 mmol/L (22-30); CHLORIDE 105 mmol/L (98-107); GLUCOSE 113 mg/dL (75-110); POTASSIUM 3.4 mmol/L (3.6-5.0); SODIUM 145.6 mmol/L (137-145)
== END ==
LOC: OD 08:41
PROVIDERS: ATTEND Internal Medicine Cardiovascular Disease
DX: I10 Essential (primary) hypertension (principal); Z79.899 Other long term (current) drug therapy
CPT/HCPCS: 36415; 80048

== ENCOUNTER → 2018-09-03 | Outpatient (CLI) | payer BC ==
[2018-09-03 07:49] LABS: ANION GAP 11 (5-19); BLOOD UREA NITROGEN 7 mg/dL (7-20); CALCIUM 9.2 mg/dL (8.4-10.2); CARBON DIOXIDE 30 mmol/L (22-30); CHLORIDE 104 mmol/L (98-107); GLUCOSE 110 mg/dL (75-110); POTASSIUM 3.5 mmol/L (3.6-5.0)
== END ==
LOC: LAB 07:09
PROVIDERS: ATTEND Internal Medicine Cardiovascular Disease
DX: E87.6 Hypokalemia (principal)
CPT/HCPCS: 36415; 80048

== ENCOUNTER → 2018-10-05 | Outpatient (CLI) | payer BC ==
[2018-10-05 11:48] LABS: ANION GAP 7 (5-19); BLOOD UREA NITROGEN 10 mg/dL (7-20); CALCIUM 9.5 mg/dL (8.4-10.2); CARBON DIOXIDE 30 mmol/L (22-30); CHLORIDE 105 mmol/L (98-107); GLUCOSE 113 mg/dL (75-110); POTASSIUM 3.7 mmol/L (3.6-5.0); SODIUM 141.7 mmol/L (137-145)
== END ==
LOC: OD 10:46
PROVIDERS: ATTEND Internal Medicine Cardiovascular Disease
DX: I10 Essential (primary) hypertension (principal); E87.6 Hypokalemia; Z79.899 Other long term (current) drug therapy
CPT/HCPCS: 36415; 80048

== ENCOUNTER 2020-01-09 19:18 | Emergency (ER) | payer SELFPAY ==
[2020-01-09 20:09] LABS: ABSOLUTE LYMPHOCYTES (AUTO) 1.8 10^3/uL (0.5-4.7); ABSOLUTE MONOCYTES (AUTO) 0.3 10^3/uL (0.1-1.4); ABSOLUTE NEUT (AUTO) 2.3 10^3/uL (1.7-8.2); BASOPHILS % (AUTO) 0.7 % (0-2); EOSINOPHILS % (AUTO) 0.9 % (0-6); HEMOGLOBIN 13.1 g/dL (13.5-17.0); LYMPHOCYTES % (AUTO) 39.5 % (13-45); MEAN CORPUSCULAR HEMOGLOBIN 35.3 pg (27.0-33.4); MEAN CORPUSCULAR HGB CONC 35.5 g/dL (32.0-36.0); MEAN CORPUSCULAR VOLUME 99 fl (80-97); PLATELET COUNT 248 10^3/uL (150-450); RED BLOOD COUNT 3.72 10^6/uL (4.35-5.55); RED CELL DISTRIBUTION WIDTH 14.4 % (11.5-14.0); SEGMENTED NEUTROPHILS % (AUTO) 51.9 % (42-78); TOTAL CELLS COUNTED % (AUTO) 100 %; WHITE BLOOD COUNT 4.4 10^3/uL (4.0-10.5)
[2020-01-09 20:27] LABS: ALBUMIN 4.3 g/dL (3.5-5.0); ALKALINE PHOSPHATASE 72 U/L (38-126); ANION GAP 11 (5-19); ASPARTATE AMINO TRANSFERASE 164 U/L (17-59); BILIRUBIN,TOTAL 0.7 mg/dL (0.2-1.3); BLOOD UREA NITROGEN 5 mg/dL (7-20); CALCIUM 8.3 mg/dL (8.4-10.2); CARBON DIOXIDE 32 mmol/L (22-30); CHLORIDE 96 mmol/L (98-107); CREATINE KINASE 173 U/L (55-170); GLUCOSE 106 mg/dL (75-110); TOTAL PROTEIN 7.4 g/dL (6.3-8.2)
[2020-01-09 20:30] LABS: POTASSIUM 2.5 mmol/L (3.6-5.0)
[2020-01-09 20:38] LABS: CREATINE KINASE MB 0.82 ng/mL (<4.55); TROPONIN I < 0.012 ng/mL
[2020-01-09 20:39] LABS: APPEARANCE,URINE SLIGHTLY-CLOUDY; BILIRUBIN,URINE NEGATIVE (NEGATIVE); COLOR,URINE YELLOW; GLUCOSE, URINE 50 mg/dL (NEGATIVE); KETONES,URINE NEGATIVE (NEGATIVE); LEUKOCYTE ESTERASE,URINE NEGATIVE (NEGATIVE); NITRITE,URINE NEGATIVE (NEGATIVE); PROTEIN,URINE 100 mg/dL (NEGATIVE); URINE SPECIFIC GRAVITY 1.012; UROBILINOGEN,URINE NEGATIVE mg/dL (<2.0)
[2020-01-09] MEDS ORDERED: POTASSI CL 20 MEQ/50 ML RIDER 20 MEQ/50 ML RTUPB IV ONE (21:22)
[2020-01-09] MEDS ORDERED: NORMAL SALINE 1000 ML 1,000 ML IV ONE (21:24)
--- NOTE | 2020-01-09 21:31 | ER Document Report ---
ED Dizziness/Weakness - General Chief Complaint: Syncope Stated Complaint: SYNCOPE Time Seen by Provider: 01/09/20 21:11 Notes: HPI: 59-year-old male with past medical history as recorded on medications as recorded presents today stating he had a bowel movement that was normal in color and caliber and when he stood up he felt "lightheaded and dizzy" causing him to syncopized. He states he did not hit his head. He denies any and all chest pain, palpitations, shortness of breath, weakness or numbness. He states "I did not want to come but they made me". Patient denies any and all symptomatology at this time. Patient does have a cardiac history and states he had a syncopal event x1 around 5 years ago. Patient has had cardiac stents placed he believes about 4 years ago. 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 He denies any recent change or adjustment in his blood pressure medications. ROS: See HPI All other review of systems reviewed and otherwise negative Reviewed vital signs and nursing note as charted by RN. PHYSICAL EXAM: CONSTITUTIONAL: Alert and oriented and responds appropriately to questions. Well-appearing; well-nourished HEAD: Normocephalic; atraumatic EYES: PERRL; full extraocular range of motion without nystagmus ENT: Normal nose; no rhinorrhea; moist mucous membranes; pharynx without lesions noted NECK: Supple without meningismus; non-tender; no cervical lymphadenopathy, no masses CARD: Regular rate and rhythm; no murmurs; symmetric distal pulses RESP: Normal chest excursion without splinting or tachypnea; breath sounds clear and equal bilaterally; no wheezes, no rhonchi, no rales ABD/GI: Normal bowel sounds; non-distended; soft, non-tender; no palpable organomegaly or masses BACK: The back appears normal and is non-tender to palpation EXT: Normal ROM in all joints; non-tender to palpation; no edema SKIN: No acute lesions noted NEURO: CN 2-12 intact; 5/5 bilateral upper and lower extremity strength with sensation intact to light touch; normal [id number] bilaterally PSYCH: The patient's mood and manner are appropriate. Grooming and personal hygiene are appropriate. TRAVEL OUTSIDE OF THE [place] IN LAST 30 DAYS: No - Related Data Allergies/Adverse Reactions: No Known Allergies Allergy (Verified 01/09/20 19:30) Past Medical History - Social History Smoking Status: Current Every Day Smoker Chew tobacco use (# tins/day): No Frequency of alcohol use: None Drug Abuse: Cocaine, Marijuana Family History: Reviewed & Not Pertinent Patient has suicidal ideation: No Patient has homicidal ideation: No - Past Medical History Cardiac Medical History: Reports: Hx Coronary Artery Disease, Hx Hypertension Pulmonary Medical History: Renal/ Medical History: Denies: Hx Peritoneal Dialysis Musculoskeletal Medical History: Reports Hx Arthritis - bilateral knees and back Past Surgical History: Reports: Hx Cardiac Catheterization - stents, Hx Cardiac Surgery - stents, Hx Orthopedic Surgery - left knee. Denies: Hx Open Heart Surgery - Immunizations Immunizations up to date: Yes Hx Diphtheria, Pertussis, Tetanus Vaccination: No - unk Physical Exam - Vital signs Vitals: Temp Pulse Resp BP Pulse Ox 98.4 F 66 16 142/94 H 98 01/09/20 19:34 01/09/20 19:34 01/09/20 19:34 01/09/20 19:34 01/09/20 19:34 Course - Re-evaluation Re-evalutation: Given the above history and physical examination, we will place the patient on the monitor and obtain a cardiac panel, EKG, orthostatics, and reassess. Patient has no chest pain, shortness of breath, and has no focal logical deficits. Head is normocephalic atraumatic with no cervical spine tenderness. EKG shows heart of 67, normal sinus rhythm, normal axis, no ST elevation or depression. 01/09/20 21:26 Orthostatics and troponin with potassium as recorded. No obvious EKG ST elevations or depressions. Patient still denies any and all symptoms. He does take potassium supplementation. I have had a long talk with the patient regarding his syncopal events, potassium levels, and orthostasis. I have explained that I do believe that the patient would benefit and require observation for fluid rehydration, potassium, and heart evaluation. Patient adamantly denies this. He would not allow me to even repeat a repeat troponin. I have explained the seriousness of condition with multiple different separate talks. The patient is very polite and informative and he is oriented x4. He still adamantly denies admission, observation, or repeat troponin. He will allow me to provide replete supplementation of potassium and a bolus of fluids. Patient promises to return with any new or worrisome symptoms and to follow-up with his primary care physician. He is willing to sign out AGAINST MEDICAL ADVICE. - Vital Signs Vital signs: Temp Pulse Resp BP Pulse Ox 98.4 F 72 16 112/87 H 98 01/09/20 19:34 01/09/20 20:27 01/09/20 19:34 01/09/20 20:27 01/09/20 19:34 - Laboratory Result Diagrams: 01/09/20 19:55 01/09/20 19:55 Laboratory results interpreted by me: 01/09/20 01/09/20 01/09/20 19:55 19:55 20:10 RBC 3.72 L Hgb 13.1 L Hct 37.0 L MCV 99 H MCH 35.3 H RDW 14.4 H Potassium 2.5 L* Chloride 96 L Carbon Dioxide 32 H BUN 5 L Calcium 8.3 L AST 164 H ALT 59 H Creatine Kinase 173 H Urine Protein 100 H Urine Glucose (UA) 50 H Urine Blood SMALL H Discharge - Discharge Clinical Impression: Low blood potassium Syncopal episodes Qualifiers: Syncope type: unspecified Qualified Code(s): R55 - Syncope and collapse Condition: Fair Disposition: AGAINST MEDICAL ADVICE Additional Instructions: Return at any time that you would like for further assessment and evaluation. Please make sure that she return immediately with any chest pain, palpitations, weakness or numbness, fevers, vomiting, leg swelling, shortness of breath, or any other acute problems. Please make sure that you follow-up with your primary care physician regarding these syncopal episodes as well as a recheck of your potassium was was extremely low at 2.5.
[2020-01-09 23:06] VITALS: BP 163/101
--- NOTE | 2020-01-10 06:27 | EKG REPORT ---
SEVERITY:- ABNORMAL ECG - SINUS RHYTHM NONSPECIFIC T ABNORMALITIES, DIFFUSE LEADS PROLONGED QT 614 MS : Confirmed by: Stalin Cuevas MD 10-Jan-2020 06:26:10
== END 2020-01-09 23:15 | disposition left against medical advice (07) ==
LOC: ER 19:18
DX: E87.6 Hypokalemia (principal); R55 Syncope and collapse; R42 Dizziness and giddiness; F17.200 Nicotine dependence, unspecified, uncomplicated; I25.10 Atherosclerotic heart disease of native coronary artery without angina pectoris; I10 Essential (primary) hypertension
CPT/HCPCS: 93005; 99284; 96365; 96366; 36415; 82553; 82550; 85025; 80053; 81001; 84484; 93010; J3480; J7030